=== PATIENT | male | born 1950 | race Caucasian/White ===

== ENCOUNTER 2020-05-01 07:28 | Day surgery (SDC) | payer OTHER ==
[2020-04-29 09:35] VITALS: BMI 29.1
[2020-05-01] MEDS ORDERED: LIDOCAINE HCL/PF 2% SDV 5ML VIAL ONE (07:59)
[2020-05-01] MEDS ORDERED: PROPOFOL 20 ML ONE ×3 (07:59)
[2020-05-01 08:02] VITALS: TEMP 98.5
[2020-05-01 09:23] VITALS: BP 118/66; PULSE 64
== END 2020-05-01 09:30 | disposition home or self-care (01) ==
LOC: FASU-ENDO 07:28
PROVIDERS: ATTEND Internal Medicine Gastroenterology
PROC: 0DJD8ZZ Inspection of Lower Intestinal Tract, Via Natural or Artificial Opening Endoscopic (ICD-10-PCS; principal; 2020-05-01 08:25)
DX: Z12.11 Encounter for screening for malignant neoplasm of colon (principal); Z83.71 Family history of colonic polyps; K57.30 Diverticulosis of large intestine without perforation or abscess without bleeding